=== PATIENT | male | born 1975 | race Caucasian/White ===

== ENCOUNTER 2018-05-21 02:33 | Emergency (ER) | payer OTHER ==
[2018-05-21 02:48] VITALS: BP 128/59; TEMP 97.6; BMI 24.7
[2018-05-21] MEDS ORDERED: SODIUM CHLORIDE 1,000 ML IV STA (03:07)
[2018-05-21] MEDS ORDERED: TORADOL IVP STA (03:09)
[2018-05-21] MEDS ORDERED: PHENERGAN 25 MG/ML VIAL 12.5 MG in SODIUM CHLORIDE 50 ML IV STA (03:09)
[2018-05-21] MEDS ORDERED: ATIVAN IVP STA (03:09)
[2018-05-21] MEDS ORDERED: MORPHINE 2 MG/ML SYRINGE IVP STA (03:09)
[2018-05-21] MEDS ORDERED: PHENERGAN 25 MG/ML VIAL ONE (03:19)
--- NOTE | 2018-05-21 04:48 | CT ---
EXAM: CT angiogram of the chest with intravenous contrast 05/21/2018. Multi planar reformatted imag es obtained. MIP and three-dimensional reconstructed images provided HISTORY: Pleuritic chest pain COMPARISON: 08/24/2008 FINDINGS: The heart size appears within normal limits. No pericardial effusion. There are no pulmonary arterial filling defects to suggest pulmonary embolus. Benign granulomatous calcifications. There is no pulmonary consolidation, effusion or pneumothorax. Minimal bilateral dependent atelectasis. Limited views of the upper abdomen show no acute abnormality. No acute osseous abnormality. IMPRESSION: 1. No evidence of pulmonary embolus. 2. Atelectasis. 3. No acute cardiopulmonary process.
--- NOTE | 2018-05-21 05:21 | ED.PDOC ---
General ED Provider: Dr. LEONIE CANAS-ER Chief Complaint: Chest Pain Stated Complaint: my chest hurts Time Seen by Physician: 02:40 Mode of Arrival: Walk-In Information Source: Patient Exam Limitations: No limitations Nursing and Triage Documentation Reviewed and Agree: Yes Does patient meet sepsis criteria?: No System Inflammatory Response Syndrome: Not Applicable Sepsis Protocol: For patient's 13 years and over: Temp is 96.8 and below OR 101 and greater Pulse >90 BPM Resp >20/minute Acutely Altered Mental Status Are patient's symptoms suggestive of a new infection, such as: -Pneumonia -Skin, Soft Tissue -Endocarditis -UTI -Bone, Joint Infection -Implantable Device -Acute Abdominal Infection -Wound Infection -Meningitis -Blood Stream Catheter Infection -Unknown Cardiovascular Complaint Exam - Chest Pain Complaint/Exam Onset: Sudden Duration: this am Symptoms Are: Still present Initial Severity: Mild Current Severity: Moderate Location: Reports: Diffuse Pain Radiates: Reports: Back Character: Reports: Dull, Aching, Heaviness Aggravating: Reports: Deep breaths Alleviating: Reports: None Associated Signs and Symptoms: Reports: Back pain History of Healthcare-Acquired Pneumonia: Reports: No AMI/ACS Risk Factors: Reports: Smoking TAD Risk Factors: Reports: None Pulmonary Embolism Risk Factors: Reports: None Prior Care for this Complaint: No Recent Stress Test: No Recent Echo/LV Function: No JVD Present: No Subcutaneous Emphysema Present: No Diminshed Breath Sounds: No Reproducible Chest Wall Pain: No Bilateral Pulses Present: Yes Unequal Pulses Noted: No Differential Diagnoses: Acute CT, ACS, Chest Wall Pain, Pulmonary Embolism Quality Indicator For Non-Traumatic Chest Pain/Syncope: EKG Performed Review of Systems - Review Of Systems Constitutional: Reports: No symptoms Eyes: Reports: No symptoms Ears, Nose, Mouth, Throat: Reports: No symptoms Respiratory: Reports: No symptoms Cardiac: Reports: Chest pain GI: Reports: No symptoms : Reports: No symptoms Musculoskeletal: Reports: Back pain Skin: Reports: No symptoms Neurological: Reports: No symptoms Endocrine: Reports: No symptoms Hematologic/Lymphatic: Reports: No symptoms All Other Systems: Reviewed and Negative Past Medical History - Past Medical History Previously Healthy: Yes Endocrine: Reports: Unknown Cardiovascular: Reports: Unknown Respiratory: Reports: Unknown Hematological: Reports: Unknown Gastrointestinal: Reports: Unknown Genitourinary: Reports: Unknown Neuro/Psych: Reports: Unknown Musculoskeletal: Reports: Unknown Cancer: Reports: Unknown - Surgical History General Surgical History: Reports: Unknown - Family History Family History: Reports: Unknown - Social History Smoking Status: Current every day smoker, Heavy tobacco smoker Hx Substance Use: Yes (ALCOHOL) Alcohol Screening: Heavy Lives: With family - Immunizations Tetanus Shot up to Date: (UNKNOWN) Physical Exam - Physical Exam Appearance: Well-appearing, No pain distress, Well-nourished Pain Distress: Moderate Eyes: MAR, EOMI, Conjunctiva clear ENT: Ears normal Neck: Supple Respiratory: Airway patent Cardiovascular: RRR, Pulses normal, No rub, No murmur GI/: Soft, Nontender, No masses, Bowel sounds normal, No Organomegaly Musculoskeletal: Normal strength, ROM intact, No edema, No calf tenderness Skin: Warm Neurological: Sensation intact Psychiatric: Affect appropriate, Mood appropriate, Anxious Interpretation - Radiology Interpretation Radiology Interpretation By: Radiologist Radiology Results: Negative Exam Interpreted: CT Scan - EKG Interpretation Time of EKG #1: 05:21 Rate: Normal Rhythm: Sinus Ectopy: None [place]: NL ST Segment: Normal Interpretation: nsr Re-Evaluation - Re-Evaluation Time of Re-Evaluation: 05:21 Status: Improved Vital Signs Stable: Yes Pain Level: 0 Appearance: NAD Lungs: Clear Skin: Warm and Dry Neuro: Alert and Oriented X3 CV: RRR Critical Care Note - Critical Care Note Total Time (mins): 30 Course - Course Hematology/Chemistry: 05/21/18 03:15 05/21/18 03:15 Orders, Labs, Meds: Lab Review 05/21/18 05/21/18 05/21/18 02:05 02:50 03:15 WBC 11.03 H RBC 4.41 L Hgb 13.8 L Hct 39.5 L MCV 89.6 MCH 31.3 H MCHC 34.9 RDW Coeff of Brian 14.0 Plt Count 201 Immature Gran % (Auto) 0.3 Neut % (Auto) 79.2 Lymph % (Auto) 8.4 L Burke % (Auto) 11.0 H Eos % (Auto) 0.6 Baso % (Auto) 0.5 Immature Gran # (Auto) 0.0 Neut # (Auto) 8.7 H Lymph # (Auto) 0.9 Burke # (Auto) 1.2 Eos # (Auto) 0.1 Baso # (Auto) 0.1 ESR 2 Sodium Potassium Chloride Carbon Dioxide Anion Gap BUN Creatinine Estimated GFR (MDRD) BUN/Creatinine Ratio Glucose Calcium Total Bilirubin AST ALT Alkaline Phosphatase Total Creatine Kinase CK-MB (CK-2) CK-MB (CK-2) % Troponin I Total Protein Albumin Globulin Albumin/Globulin Ratio Amylase Lipase Urine Color Yellow Urine Clarity Clear Urine pH 5.5 Ur Specific [place] 1.010 Urine Protein Negative Urine Glucose (UA) Negative Urine Ketones Negative Urine Blood Negative Urine Nitrite Negative Urine Bilirubin Negative Urine Urobilinogen 0.2 Ur Leukocyte Esterase Negative Urine Opiates Screen Negative Ur Oxycodone Screen Negative Urine Methadone Screen Negative Ur Propoxyphene Screen Negative Ur Barbiturates Screen Negative U Tricyclic Antidepress Negative Ur Phencyclidine Scrn Negative Ur Amphetamine Screen Negative U Methamphetamines Scrn Negative U Benzodiazepines Scrn Negative Urine Cocaine Screen Negative U Cannabinoids Screen Negative Plasma/Serum Alcohol 05/21/18 03:15 WBC RBC Hgb Hct MCV MCH MCHC RDW Coeff of Brina Plt Count Immature Gran % (Auto) Neut % (Auto) Lymph % (Auto) Burke % (Auto) Eos % (Auto) Baso % (Auto) Immature Gran # (Auto) Neut # (Auto) Lymph # (Auto) Burke # (Auto) Eos # (Auto) Baso # (Auto) ESR Sodium 129.6 L Potassium 4.07 Chloride 94.2 L Carbon Dioxide 27.5 Anion Gap 11.97 BUN 4.2 L Creatinine 0.74 Estimated GFR (MDRD) 116.00 BUN/Creatinine Ratio 5.67 Glucose 106.4 H Calcium 8.67 Total Bilirubin 0.35 AST 56.8 ALT 34.5 Alkaline Phosphatase 91.7 Total Creatine Kinase 154.0 CK-MB (CK-2) 0.550 CK-MB (CK-2) % 0.3500 Troponin I < 0.012 Total Protein 7.12 Albumin 4.29 Globulin 2.83 Albumin/Globulin Ratio 1.51 Amylase 93.9 Lipase 99.3 Urine Color Urine Clarity Urine pH Ur Specific [place] Urine Protein Urine Glucose (UA) Urine Ketones Urine Blood Urine Nitrite Urine Bilirubin Urine Urobilinogen Ur Leukocyte Esterase Urine Opiates Screen Ur Oxycodone Screen Urine Methadone Screen Ur Propoxyphene Screen Ur Barbiturates Screen U Tricyclic Antidepress Ur Phencyclidine Scrn Ur Amphetamine Screen U Methamphetamines Scrn U Benzodiazepines Scrn Urine Cocaine Screen U Cannabinoids Screen Plasma/Serum Alcohol 158.7 H Orders Category Date Time Status EKG-(ED ONLY) Stat CARDIO 05/21/18 03:06 Completed NPO REMINDER: IMAGING ONCE CARE 05/21/18 03:08 Active ED SOLICITING FREIGHT AGENT APPLIED .ONCE EMERGENCY 05/21/18 03:07 Active ED IV/MEDIPORT/POWERPORT .ONCE EMERGENCY 05/21/18 03:07 Active AMYLASE Stat LAB 05/21/18 03:15 Completed BLOOD ALCOHOL Stat LAB 05/21/18 03:15 Completed CBC W/ AUTO DIFF Stat LAB 05/21/18 03:15 Completed COMPREHENSIVE METABOLIC PANEL Stat LAB 05/21/18 03:15 Completed CREATINE KINASE Stat LAB 05/21/18 03:15 Completed ESR Stat LAB 05/21/18 03:15 Completed LIPASE Stat LAB 05/21/18 03:15 Completed TROPONIN I Stat LAB 05/21/18 03:15 Completed URINALYSIS C & S IF INDICATED Stat LAB 05/21/18 02:05 Completed URINE DRUG SCREEN (RAPID FOR ED) [DRUG SCREEN, URINE, LAB 05/21/18 02:50 Completed RAPID] Stat 0.9 % Sodium Chloride [Saline Flush] MEDS 05/21/18 03:07 Ordered 1 syr IVF PRN PRN Ketorolac Tromethamine [Toradol] MEDS 05/21/18 03:09 Discontinued 30 mg IVP ONCE STA Lorazepam Inj [Ativan] MEDS 05/21/18 03:09 Discontinued 1 mg IVP ONCE STA Morphine Sulfate [Morphine 2 mg/ml Syringe] MEDS 05/21/18 03:09 Discontinued 2 mg IVP ONCE STA Promethazine HCl [Phenergan 25 mg/ml Vial] MEDS 05/21/18 03:19 Discontinued 25 mg .ROUTE .STK-MED ONE Promethazine HCl [Phenergan 25 mg/ml Vial] 12.5 mg MEDS 05/21/18 03:09 Discontinued 0.9 % Sodium Chloride [Sodium Chloride] 50 ml IV ONCE Sodium Chloride 0.9% [Sodium Chloride] 1,000 ml MEDS 05/21/18 03:07 Active IV 100 mls/hr CT CHEST PE PROTOCOL Stat RADS 05/21/18 03:07 Completed Medications Generic Name Dose Route Start Last Admin Trade Name Freq PRN Reason Stop Dose Admin Sodium Chloride 1,000 mls @ 100 mls/hr 05/21/18 03:07 05/21/18 03:22 Sodium Chloride IV 05/21/18 13:06 100 mls/hr .Q10H STA Administration Sodium Chloride 1 syr 05/21/18 03:07 05/21/18 03:25 Saline Flush IVF 1 syr PRN PRN Administration To flush IV Discontinued Medications Generic Name Dose Route Start Last Admin Trade Name French PRN Reason Stop Dose Admin Promethazine HCl 12.5 mg/ 50.5 mls @ 75 mls/hr 05/21/18 03:09 05/21/18 03:30 Sodium Chloride IV 05/21/18 03:49 75 mls/hr ONCE STA Administration Ketorolac Tromethamine 30 mg 05/21/18 03:09 05/21/18 03:24 Toradol IVP 05/21/18 03:10 30 mg ONCE STA Administration Lorazepam 1 mg 05/21/18 03:09 05/21/18 03:27 Ativan IVP 05/21/18 03:10 1 mg ONCE STA Administration Morphine Sulfate 2 mg 05/21/18 03:09 05/21/18 03:32 Morphine 2 Mg/Ml Syringe IVP 05/21/18 03:10 2 mg ONCE STA Administration We wanted to admit mr champagne for further testing id stress testing but he refuses --he understands risks of going home prematurely including but he still refuses. We note his B.A.) Vital Signs: Temp Pulse Resp BP Pulse Ox 05/21/18 02:34 97.6 F 71 20 128/59 L 98 ZOHAIB Risk Score ZOHAIB Risk Score: Risk Score Odds of by 30D 0 0.1 (0.1-0.2) 1 0.3 (0.2-0.3) 2 0.4 (0.3-0.5) 3 0.7 (0.6-0.9) 4 1.2 (1.0-1.5) 5 2.2 (1.9-2.6) 6 3.0 (2.5-3.6) 7 4.8 (3.8-6.1) Departure - Departure Time of Disposition: 05:23 Disposition: AMA Discharge Problem: Chest pain Instructions: Chest Pain (ED) Condition: Good Pt referred to PMD for follow-up: Yes IPMP verified?: No Additional Instructions: return prn Allergies/Adverse Reactions: Allergies cephalexin [From Keflex] Adverse Reaction (Verified 05/21/18 02:48) PCN Allergy (Mild, Uncoded 05/21/18 02:48) Home Medications: Ambulatory Orders 1 [No Reported Medications] 05/21/18 Disposition Discussed With: Patient, Family
== END 2018-05-21 05:34 | disposition left against medical advice (07) ==
LOC: ED 02:33
DX: R07.9 Chest pain, unspecified (principal); M54.9 Dorsalgia, unspecified; F17.210 Nicotine dependence, cigarettes, uncomplicated
CPT/HCPCS: 36415; 80053; 80306; 80307; 81001; 82150; 82550; 82553; 83690; 84484; 85025; 85651; 93005; 93010; 96361; 96365; 96375; 99283